=== PATIENT | male | born 1995 | race Caucasian/White ===

== ENCOUNTER 2019-12-25 18:50 | Emergency (ER) | payer BC ==
[2019-12-25] MEDS ORDERED: HYDROmorphone 1 MG/ML Syringe ONE (19:16)
[2019-12-25] MEDS ORDERED: Ondansetron 4 MG/2 ML SDV IVPUSH ONE (19:29)
[2019-12-25] MEDS ORDERED: HYDROmorphone 1 MG/ML Syringe IVPUSH ONE ×2 (19:29→20:01)
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
[2019-12-25] MEDS ORDERED: Ondansetron 4 MG/2 ML SDV ONE (19:31)
[2019-12-25] MEDS ORDERED: ceFAZolin 2 GM in Premix Bag 1 BAG IV ONE (20:01)
--- NOTE | 2019-12-27 10:49 | CR ---
Left tibia and fibula: AP and lateral views of the left tibia and fibula were obtained. Comparison: No previous study. Comminuted fracture is identified within the mid one third diaphysis of the fibula. Mild displacement is seen by up to three-quarter shaft width. Displaced tibial fracture is noted near the junction the mid and distal one third diaphysis with displacement by about a half shaft width. Diffuse soft tissue swelling is seen. No additional abnormality is identified. Impression: 1. Tibia and fibular fractures as described above. 2. Soft tissue swelling. Diagnostic code #3 Study was dictated in MDT
== END 2019-12-25 20:35 ==
LOC: JD.ED 18:50
DX: S82.202C Unspecified fracture of shaft of left tibia, initial encounter for open fracture type IIIA, IIIB, or IIIC (principal); S82.402C Unspecified fracture of shaft of left fibula, initial encounter for open fracture type IIIA, IIIB, or IIIC; R00.0 Tachycardia, unspecified; V86.56XA Driver of dirt bike or motor/cross bike injured in nontraffic accident, initial encounter
CPT/HCPCS: 29515; 36415; 73590; 80053; 85025; 96365; 96375; 96376; 99285; J0690; J1170; J2405